=== PATIENT | male | born 1985 | race Two or more races ===

== ENCOUNTER 2021-09-16 20:21 | Emergency (ER) | payer OTHER ==
[~2021-09-16] VITALS: Ht 165.1 cm; Wt 78.0 kg
--- NOTE | 2021-09-16 20:32 | NUR ---
OMARI C/O LEFT ANKLE INJURY AT 6PM
[2021-09-16] MEDS ORDERED: HYDROCODONE/APAP 5/325MG TABLET PO ONE (21:30)
[2021-09-16] MEDS ORDERED: HYDROCODONE/APAP 5/325MG TABLET ONE (21:33)
[2021-09-16] MEDS ORDERED: IBUP-1955 PO (22:50)
[2021-09-16] MEDS ORDERED: HYDR-4209 PO (22:50)
[2021-09-16 23:00] VITALS: BP 121/69
--- NOTE | 2021-09-16 23:00 | NUR ---
Patient discharged to home in stable condition. Written and verbal after care instructions given. Patient verbalizes understanding of instruction. PT ambulatory with a steady gait WITH CRUTCHES
== END 2021-09-16 23:01 | disposition home or self-care (01) ==
LOC: ER 20:35
DX: S82.52XA Displaced fracture of medial malleolus of left tibia, initial encounter for closed fracture (principal); S92.152A Displaced avulsion fracture (chip fracture) of left talus, initial encounter for closed fracture; Z60.2 Problems related to living alone; Z79.891 Long term (current) use of opiate analgesic; X50.1XXA Overexertion from prolonged static or awkward postures, initial encounter; Y93.02 Activity, running; Y92.89 Other specified places as the place of occurrence of the external cause; Y99.8 Other external cause status
CPT/HCPCS: 73610-TC

== ENCOUNTER 2023-08-13 09:17 | Emergency (ER) | payer SELFPAY ==
[~2023-08-13] VITALS: Ht 165.1 cm; Wt 79.4 kg
[~2023-08-13 09:17] MED LIST: HYDR-4209 PO; IBUP-1955 PO
[2023-08-13] MEDS: KETOROLAC TROMETHAMINE INJ 60 MG/2 ML VIAL IM ONE (09:56)
[2023-08-13 09:59] VITALS: BP 102/73; TEMP 98.4; O2SAT 95
== END 2023-08-13 10:00 | disposition left against medical advice (07) ==
LOC: ER 09:17
DX: M25.562 Pain in left knee (principal); Z60.2 Problems related to living alone